=== PATIENT | male | born 2005 | race Two or more races ===

== ENCOUNTER 2025-10-22 21:18 | Emergency (ER) | payer MEDICAID, SELFPAY ==
[2025-10-22 21:30] VITALS: BP 154/91; PULSE 93; RESP 18; TEMP 37.7; O2SAT 98; BMI 23.9
[2025-10-22 22:21] LABS: Collection Type, Urine Clean Catch; Squamous Epithelial Cell,Urine 0 /hpf (0-5)
[2025-10-22] MEDS: MG HYD/AL HYD/SIME (Maalox Reg) SUSP 30 ML UDC PO (22:25)
[2025-10-22] MEDS: LIDOCAINE VISCOUS 2% 15 ML UDC 3 ML PO (22:25)
[2025-10-22] MEDS: DICYCLOMINE 10 MG CAPSULE PO (22:25)
[2025-10-22 22:34] LABS: Basophils # (Auto) 0.1 Thou/mm3 (0.0-0.2); Basophils % (Auto) 1 % (0-2.5); Eosinophils # (Auto) 0.5 Thou/mm3 (0.0-0.5); Eosinophils % (Auto) 5 % (0-10); Hematocrit 47.9 % (41.0-53.0); Hemoglobin 16.4 g/dL (13.5-16.0); Immature Granulocytes Auto 0.02 Thou/mm3 (0.00-0.00); Lymphocytes # (Auto) 2.9 Thou/mm3 (1.0-4.8); Lymphocytes % (Auto) 32 % (10-50); Mean Corpuscular HGB Conc 34.2 g/dl (31.0-37.0); Mean Corpuscular Hemoglobin 30.3 pg (25.0-35.0); Mean Corpuscular Volume 89 fL (80-100); Monocytes # (Auto) 0.7 Thou/mm3 (0.0-0.8); Monocytes % (Auto) 8 % (0-12); Neutrophils # (Auto) 5.1 Thou/mm3 (1.8-7.7); Neutrophils % (Auto) 55 % (37-80); Nucleated Red Blood Cell # 0.00 Thou/mm3 (0.00-0.00); Nucleated Red Blood Cell % 0 /100 WBC (0); Platelet Count 268 Thou/mm3 (140-440); RDW Standard Deviation 41.0 fL (35.1-43.9); Red Blood Count 5.41 Miln/mm3 (4.50-5.90); White Blood Count 9.3 Thou/mm3 (4.5-11.0)
[2025-10-22 22:36] LABS: Bilirubin,Urine Negative (Negative); Blood,Urine 1+ (Negative); Clarity,Urine Clear (Clear/Hazy); Color,Urine Yellow (Lt Yel-Yel); Glucose, Urine Negative (Negative); Ketones,Urine Negative (Negative); Leukocyte Esterase,Urine Negative (Negative); Nitrite,Urine Negative (Negative); PH,Urine 6.5 (5.0-7.0); Protein,Urine 1+ (Neg - Trace); RBC,Urine 2 /hpf (0-3); Specific Gravity,Urine 1.039 (1.001-1.035); Urobilinogen,Urine 2.0 mg/dL (0.0-1.0); WBC,Urine 1 /hpf (0-5)
[2025-10-22 23:06] LABS: Anion Gap 11 (7-16); BUN/Creatinine Ratio 15 Ratio (12-20); Blood Urea Nitrogen 15 mg/dL (9-23); Calcium 9.0 mg/dL (8.3-10.6); Carbon Dioxide 25.2 mMol/L (20.0-31.0); Chloride 105 mMol/L (98-107); Creatinine (Component) 1.0 mg/dL (0.6-1.3); Estimated Creatinine Clearance 102.5 mL/min (>60); Glucose 91 mg/dL (74-106); Lipase 37 U/L (12-53); Osmolality,Calculated 282 (275-295); Potassium 3.4 mMol/L (3.4-5.1); Sodium 141 mMol/L (136-145); eGFR > 60 See Note
--- NOTE | 2025-10-22 23:11 | EDNOTE_ITS ---
ED Abdominal Pain RME/HPI General Chief Complaint: Abdominal Pain Stated complaint: UPPER ABDOMINAL PAIN Time seen by provider: 10/22/25 21:21 Arrival date/time: 10/22/25 21:18 Source: patient Mode of arrival: ambulatory Limitations: no limitations RME / HPI RME / HPI narrative: This patient is a 20-year-old male who arrives to the ED today with complaints of generalized epigastric pain that has ebbed and flowed over the past 3 days. Patient denies any recent travel or new food sources. Patient denies any ill contacts. Patient states the pain is burning and crampy. Patient denies any fever nausea or vomiting. Patient has a history of abdominal pain concerns. Related Data Previous Rx's ?Medication ?Instructions ?Recorded doxycycline monohydrate 100 mg 100 mg PO BID #20 tabs 08/17/23 tablet dicyclomine 10 mg capsule 10 mg PO QID PRN abdominal p ain 10/22/25 #20 caps Allergies Allergy/AdvReac Type Severity Reaction Status Date / Time No Known Allergies Allergy Verified 08/17/23 17:55 Review of Systems Review of Systems Systems Reviewed: All systems reviewed, normal except as documented Past Medical History Past Medical History GASTROINTESTINAL: Negative Gastrointestinal Disorders or Ulcer Social History SMOKING STATUS: Never smoker ED Exam Narrative Physical exam: Patient did not look toxic and exam was relatively unremarkable. General Limitations: Present no limitations General appearance: Present alert and in no apparent distress Head Head exam: Present atraumatic Eye Eye exam: Present normal appearance, PERRL and EOMI ENT ENT exam: Present normal exam, normal oropharynx and mucous membranes moist Neck Neck exam: Present normal inspection, full ROM and trachea midline Chest Chest inspection: Present normal inspection and symmetric chest wall rise Respiratory Respiratory exam: Present normal lung sounds bilaterally Cardiovascular Cardiovascular exam: Present regular rate, normal rhythm and normal heart sounds Abdominal Exam Abdominal exam: Present other (Nonspecific diffuse epigastric tenderness to palpation bilaterally. No signs of trauma. No pulsatile masses.) Extremities Exam Extremities exam: Present normal inspection and full ROM Back Exam Back exam: Present normal inspection and full ROM Neurological Exam Neurological exam: Present alert, oriented X3 and CN II-XII intact Psychiatric Psychiatric exam: Present normal affect and normal mood Skin Skin exam: Present warm, dry, intact and normal color Course Quality Measures none Orders Category Date Time Status BMP [Basic Metabolic Panel] Stat Lab 10/22/25 22:09 Completed CBC Stat Lab 10/22/25 22:09 Completed Lipase Stat Lab 10/22/25 22:09 Completed UA [Urinalysis] Stat Lab 10/22/25 21:58 Completed Dicyclomine [Bentyl] Med 10/22/25 21:35 Discontinued 10 mg PO X1 ONE Lidocaine 2% Viscous [Xylocaine 2% Viscous] Med 10/22/25 21:35 Discontinued 3 ml PO X1 ONE mg Hyd/Al Hyd/Palma Susp [Maalox Susp] Med 10/22/25 21:35 Discontinued 30 ml PO X1 ONE As noted above Vital Signs Vital signs: Vital Signs Temperature 99.8 F 10/22/25 21:30 Pulse Rate 93 10/22/25 21:30 Respiratory Rate 18 10/22/25 21:30 Blood Pressure 154/91 H 10/22/25 21:30 Pulse Oximetry (%) 98 10/22/25 21:30 Oxygen Delivery Method Room Air 10/22/25 21:30 As noted above Abdominal Pain MDM MDM Narrative MDM Narrative:: All studies performed in the ED were evaluated by me personally. Serum and urine studies were unremarkable for any systemic concerns. Patient responded well to medication dispensed. Unknown as to the cause of the patient's intermittent abdominal pain concerns. Advised patient Medication as needed and if symptoms continue, follow-up with primary care provider for continued evaluation and management. Patient data External records reviewed:: [facility] previous records Clinical information provided by:: patient Social determinants that could affect healthcare access:: none Patient has the following chronic illnesses:: None How is presenting disease/condition affected by chronic disease/condition?: no chronic disease Evaluation data The following diagnostics were reviewed and interpreted by me:: lab results Lab and/or radiology exams considered but not ordered:: None Interpretation Summary: Unremarkable serum and urine evaluation. Medications / Prescriptions Medications or Prescriptions considered but not ordered:: None Medication administrations:: Medication Administration History Discontinued Medications Al Hydrox/Mg Hydrox/Simethicone (Mg Hyd/Al Hyd/Palma (Maalox Reg) Susp 30 Ml Udc) 30 ml PO X1 ONE Stop: 10/22/25 21:36 Last Admin: 10/22/25 22:25 Dose: 30 ml Documented By: GIOVANNA Dicyclomine HCl (Dicyclomine 10 Mg Capsule) 10 mg PO X1 ONE Stop: 10/22/25 21:36 Last Admin: 10/22/25 22:25 Dose: 10 mg Documented By: GIOVANNA Lidocaine HCl (Lidocaine Viscous 2% 15 Ml Udc) 3 ml PO X1 ONE Stop: 10/22/25 21:36 Last Admin: 10/22/25 22:25 Dose: 3 ml Documented By: GIOVANNA As noted above Consultations Consultation(s) initiated? (list below): No Diagnosis Differential diagnosis abdominal pain: abdominal pain and gastroenteritis Most likely diagnosis given after review of the tests above:: Abdominal pain Admission Indicated Admission indicated?: not indicated Explain why admission is indicated or not indicated:: Unwarranted Admission Request Was there a request for admission?: No Disposition Plan Disposition Plan: Discharge Discharge Attestation Discharge Attestation: The patient and all family members were given an opportunity to ask questions and understood the discharge instructions. Discharge instructions specifically effects, indications for sooner follow up or return to the emergency department, and the expected course of current diagnosis. Patient condition: Stable Discharge Plan Plan Patient Disposition: HOME (Self Care) Prescriptions/Referrals Prescriptions/Med Rec: New dicyclomine 10 mg capsule 10 mg PO QID PRN (Reason: abdominal pain) Qty: 20 0RF No Action doxycycline monohydrate 100 mg tablet 100 mg PO BID Qty: 20 0RF Referrals: Darell Garcia MD [Primary Care Provider, Family Practice] - In 1 week Problem List Clinical Impression: Abdominal pain Patient/Caregiver Discharge Instructions Education Materials: Abdominal Pain Additional Instructions: Advised patient utilize medication as needed for symptomatic relief. If symptoms continue, patient will need to follow-up with primary care provider. Print Language: Kiswahili Stand Alone Forms: Emily Award Info., Patient Portal Info Letter
[2025-10-22 23:20] VITALS: BP 150/96; PULSE 86; RESP 18; TEMP 37.2; O2SAT 98
== END 2025-10-22 23:22 | disposition home or self-care (01) ==
PROVIDERS: Physician Assistant; Emergency Provider Emergency Medicine; PCP Family Medicine
DX: R10.84 Generalized abdominal pain (principal)
CPT/HCPCS: 36415; 80048; 81001; 83690; 85025; 99282; J3490; A9270